=== PATIENT | female | born 1965 | race American Indian/Alaskan Native ===

== ENCOUNTER 2019-02-26 13:00 | Outpatient (CLI) | payer OTHER ==
--- NOTE | 2019-03-01 11:34 | Mammography Report ---
BILATERAL DIGITAL SCREENING MAMMOGRAM WITH CAD INDICATION: Screening. COMPARISONS: 07/31/2015 FINDINGS: Craniocaudal and mediolateral oblique views of both breasts were obtained using 2-D digital acquisition. In addition to standard review, the examination was analyzed for possible abnormalities using a computer-assisted detection device (iCAD). The breast tissue is heterogeneously dense, which may obscure small masses. A left asymmetry with subtle architectural distortion on the MLO view requires additional imaging. No suspicious calcifications. The right breast is negative. IMPRESSION: Left asymmetry requiring additional imaging. Recommend recall for left oral and spot magnification ML O views and left breast ultrasound if needed. BI-RADS CATEGORY 0: INCOMPLETE - NEED ADDITIONAL IMAGING EVALUATION AND/OR PRIOR MAMMOGRAMS FOR COMP ARISON Information is entered into a reminder system for a target due date for the next mammogram. The resul ts and recommendations were sent to the patient by mail. Signer Name: Reese Arguelles MD Signed: 03/01/2019 11:30 AM Workstation Name: [id number]
== END 2019-02-26 13:01 | disposition home or self-care (01) ==
LOC: MAMMO 13:00
PROVIDERS: ATTEND Family Medicine
DX: Z12.31 Encounter for screening mammogram for malignant neoplasm of breast (principal)
CPT/HCPCS: 77067

== ENCOUNTER 2019-03-08 13:49 | Outpatient (CLI) | payer OTHER ==
--- NOTE | 2019-03-08 14:39 | Mammography Report ---
LEFT DIGITAL DIAGNOSTIC MAMMOGRAM INDICATION: Recall for asymmetry and subtle architectural distortion on one view. TECHNIQUE: Digital left mammographic imaging was performed. COMPARISON: 02/26/2019 FINDINGS: Breast Density: The breasts are heterogeneously dense, which may obscure small masses. Additional left mammographic views were performed and are negative. Satisfactory effacement of asymme try on a spot magnification view. Lateral view is negative. IMPRESSION: No mammographic evidence of malignancy. BI-RADS Category 1: Negative. Recommend routine screening mammography in one year. A "normal" or negative report should not discourage follow up or biopsy of a clinically significant f inding. A written summary of these findings will be mailed to the patient. The patient will be entered into a mammography reporting system which will generate a reminder letter for the patient's next appointmen t at the appropriate interval. FURTHER INFORMATION: According to the [employer], yearly mammograms are recommend ed starting at age 40 and continuing as long as a woman is in good health. Breast MRI is recommended for women with an approximately 20-25% or greater lifetime risk of breast cancer, including women wi th a strong family history of breast or ovarian cancer and women who have been treated for Hodgkin's disease. Signer Name: Reese Arguelles MD Signed: 03/08/2019 2:35 PM Workstation Name: [id number]
== END 2019-03-08 13:50 | disposition home or self-care (01) ==
LOC: MAMMO 13:49
PROVIDERS: ATTEND Family Medicine
DX: R92.8 Other abnormal and inconclusive findings on diagnostic imaging of breast (principal)